=== PATIENT | female | born 1965 | race Caucasian/White ===

== ENCOUNTER 2018-07-31 15:11 | Emergency (ER) | payer MEDICARE, MEDICAID ==
[~2018-07-31] VITALS: Ht 172.7 cm; Wt 103.7 kg
[2018-07-31 15:22] VITALS: BP 120/86
== END 2018-07-31 15:51 | disposition home or self-care (01) ==
LOC: ED 15:30
DX: M54.16 Radiculopathy, lumbar region (principal); K21.9 Gastro-esophageal reflux disease without esophagitis; M19.90 Unspecified osteoarthritis, unspecified site; M54.9 Dorsalgia, unspecified; G89.29 Other chronic pain; F32.9 Major depressive disorder, single episode, unspecified
CPT/HCPCS: 99283

== ENCOUNTER → 2018-08-06 | Outpatient (CLI) | payer MEDICARE, MEDICAID | END | disposition home or self-care (01) | LOC: CFH 13:29 | PROVIDERS: ATTEND Family Medicine | DX: M51.37 Other intervertebral disc degeneration, lumbosacral region (principal); M53.3 Sacrococcygeal disorders, not elsewhere classified | CPT/HCPCS: 72100 ==

== ENCOUNTER 2018-12-08 11:38 | Emergency (ER) | payer MEDICARE, MEDICAID ==
[~2018-12-08] VITALS: Ht 170.2 cm; Wt 98.6 kg
[2018-12-08 11:51] VITALS: BP 135/91
[2018-12-08 12:19] LABS: BASOPHILS # (AUTO) 0.03 x10^3/uL (0-0.1); BASOPHILS % (AUTO) 1 % (0-1); EOSINOPHILS # (AUTO) 0.04 x10^3/uL (0-0.4); EOSINOPHILS % (AUTO) 1 % (1-7); LYMPHOCYTES # (AUTO) 1.74 x10^3/uL (1-3.4); LYMPHOCYTES % (AUTO) 28 % (22-44); MD NO; MEAN CORPUSCULAR HEMOGLOBIN 31.8 pg (27.0-34.8); MEAN CORPUSCULAR HGB CONC 33.7 g/dL (32.4-35.8); MEAN CORPUSCULAR VOLUME 94.4 fL (80-100); MEAN PLATELET VOLUME 10.4 fL (7.4-10.4); MONOCYTES # (AUTO) 0.43 x10^3/uL (0.2-0.8); MONOCYTES % (AUTO) 7 % (2-9); NEUTROPHILS # (AUTO) 3.89 x10^3/uL (1.8-6.8); NEUTROPHILS % (AUTO) 64 % (42-75); PLATELET COUNT 174 x10^3/uL (130-400); RED BLOOD COUNT 4.69 x10^6/uL (3.82-5.3)
[2018-12-08 12:26] LABS: ALBUMIN 4.3 g/dL (3.4-5.0); ANION GAP 7 mmol/L (5-15); CALCIUM 9.2 mg/dL (8.5-10.1); CHLORIDE 109 mmol/L (98-107); CREATININE 1.08 mg/dL (0.55-1.02)
[2018-12-08] MEDS ORDERED: SIMV20TA3 PO (13:03)
[2018-12-08] MEDS ORDERED: AMIT100T PO (13:03)
[2018-12-08] MEDS ORDERED: CELE400C PO (13:03)
[2018-12-08] MEDS ORDERED: LISI-170 PO (13:03)
--- NOTE | 2018-12-08 13:08 | NUR ---
Patient/Caregiver given discharge instructions and they have confirmed that they understand the instructions. Patient ambulatory with steady gait.
== END 2018-12-08 13:09 | disposition home or self-care (01) ==
LOC: ED 12:51
DX: S39.012A Strain of muscle, fascia and tendon of lower back, initial encounter (principal); K21.9 Gastro-esophageal reflux disease without esophagitis; I10 Essential (primary) hypertension; M19.90 Unspecified osteoarthritis, unspecified site; F32.9 Major depressive disorder, single episode, unspecified; W19.XXXA Unspecified fall, initial encounter; Y93.89 Activity, other specified; Y92.009 Unspecified place in unspecified non-institutional (private) residence as the place of occurrence of the external cause; Y99.8 Other external cause status
CPT/HCPCS: 36415; 72110; 80048; 82040; 85025; 93005; 99284

== ENCOUNTER 2019-11-21 14:12 | Outpatient (CLI) | payer MEDICARE, MEDICAID ==
[~2019-11-21 14:12] MED LIST: AMIT100T PO; CELE400C PO; LISI-170 PO; SIMV20TA19 PO
== END 2019-11-21 23:59 | disposition home or self-care (01) ==
LOC: CFH 14:12
PROVIDERS: ATTEND Family Medicine
DX: Z12.31 Encounter for screening mammogram for malignant neoplasm of breast (principal); N64.89 Other specified disorders of breast
CPT/HCPCS: 77067

== ENCOUNTER 2020-01-26 14:14 | Emergency (ER) | payer MEDICARE, MEDICAID ==
[~2020-01-26] VITALS: Ht 172.7 cm; Wt 95.5 kg
--- NOTE | 2020-01-26 14:42 | NUR ---
PT TO ROOM 31 PER JAM. PT WAS TRYING TO GET ON THE BUS TO GO TO [place] BUT WAS UNABLE TO STAND DUE TO LEVEL OF ETOH. PT MOVED TO CART AND 1 JACKET AND 2 SHIRTS REMOVED. RN LEFT JESENIA IN PLACE IT HAS NO METAL. PT WAS CONCERNED ABOUT HER PURSE WHICH WAS HANGING AROUND HER NECK. PURSE AND ALL CONTENTS INCLUDING CRACKED SCREENED PHONE ARE ON COUNTER NEAR PATIENT. PT UNABLE TO CONVERSE WITH STAFF, WOULD GO OFF ON DIFFERENT STORIES.
--- NOTE | 2020-01-26 14:45 | NUR ---
RN AT BEDSIDE PERFORMING ASSESSMENT, AND PATIENT HAS FALLEN ASLEEP AND SNORING. OXYGEN LEVEL DROPPED LOW 70%, RN PLACED PATIENT ON 2L NC, WHICH IMMEDIATELY BROUGHT HER SATS UP GREATER THAN 90%. PT ROOM IN VIEW FOR ALL NURSES TO KEEP MONITOR ON. PT PLACED ON THE RESP UNIT SHE TOLD [facility] SHE SMOKES AND HAS A COUGH. PT HAS MASK IN PLACE, BUT NO COUGH NOTED. WILL CONTINUE TO MONITOR.
--- NOTE | 2020-01-26 14:58 | NUR ---
SPOKE WITH PA REGARDING PATIENTS BLOOD PRESSURE UNDER 90 SYSTOLIC. ORDERS FOR BOLUS. IV STARTED X1 ATTEMPT AND 1000ML NACL BOLUS STARTED. VITALS Q15 MIN TO MONITOR. PT AGAIN PASSED OUT.
[2020-01-26] MEDS ORDERED: SODIUM CHLORIDE 0.9% 1,000ML IVBOLUS ONE (15:00)
[2020-01-26 15:03] LABS: BASOPHILS # (AUTO) 0.02 x10^3/uL (0-0.1); BASOPHILS % (AUTO) 0 % (0-1); EOSINOPHILS # (AUTO) 0.11 x10^3/uL (0-0.4); EOSINOPHILS % (AUTO) 2 % (1-7); LYMPHOCYTES # (AUTO) 2.24 x10^3/uL (1-3.4); LYMPHOCYTES % (AUTO) 36 % (22-44); MD NO; MEAN CORPUSCULAR HEMOGLOBIN 31.4 pg (27.0-34.8); MEAN CORPUSCULAR HGB CONC 33.9 g/dL (32.4-35.8); MEAN CORPUSCULAR VOLUME 92.5 fL (80-100); MEAN PLATELET VOLUME 9.7 fL (7.4-10.4); MONOCYTES # (AUTO) 0.43 x10^3/uL (0.2-0.8); MONOCYTES % (AUTO) 7 % (2-9); NEUTROPHILS # (AUTO) 3.38 x10^3/uL (1.8-6.8); NEUTROPHILS % (AUTO) 55 % (42-75); PLATELET COUNT 167 x10^3/uL (130-400); RED BLOOD COUNT 4.02 x10^6/uL (3.82-5.3); RED CELL DISTRIBUTION WIDTH 13.2 % (9.6-15.2)
[2020-01-26 15:07] LABS: ALBUMIN 3.7 g/dL (3.4-5.0); ANION GAP 9 mmol/L (5-15); CALCIUM 8.9 mg/dL (8.5-10.1); CHLORIDE 110 mmol/L (98-107); CREATININE 0.98 mg/dL (0.55-1.02)
--- NOTE | 2020-01-26 15:13 | NUR ---
PT FOUND SITTING AT THE FOOT OF THE BED WITH IV PULLED OUT. JAC RN IN TO RE-INSERT THE IV AND START THE BOLUS AGAIN. J PT NOW LYING ON HER RIGHT SIDE.
--- NOTE | 2020-01-26 15:26 | NUR ---
PT BEGINING TO SOBER UP, AND SITTING UP IN BED, PULLING AT HER IV, BUT STILL UNABLE TO HOLD A CONVERSATION. WILL CONTINUE TO MONITOR PATIENT.
--- NOTE | 2020-01-26 15:44 | NUR ---
IV REMOVED AND PATIENT ATTEMPTING TO LEAVE. RN WALKED WITH PATIENT FAR THE BR, AND AFTER MUCH COAXING, GOT THE PATIENT TO COME BACK TO ROOM AND REST UNTIL SHE CAN WALK BY HERSELF WITH NO ASSISTANCE. PT AGREES, NO IV AND NO MONITORS. PT LYING IN BED. REPORT TO RELIEF RN.
[2020-01-26 16:49] VITALS: BP 112/68
--- NOTE | 2020-01-26 16:49 | NUR ---
PT UP TO BR WITH MINIMAL ASSIST, BUT STILL REMAINS TO UNSTABLE TO DISCHARGE. PT REMAINS UNHOOKED FROM ALL EQUIPMENT, BUT DOES ALL RN TO TAKE HER BP.
--- NOTE | 2020-01-26 18:36 | NUR ---
PT DEMONSTRATES STEADY GAIT, PT AMBULATED TO EXIT. PT WITH ALL BELONGINGS ON DC
--- NOTE | 2020-01-26 18:38 | NUR ---
PT GOT UP AND BEGAN ASKING QUESTIONS ABOUT WHAT HAPPENED LAST NIGHT. PT HAD A STEADY GAIT AND WAS ESCORTED OUT BY LAURA RAMSEY.
== END 2020-01-26 18:44 | disposition home or self-care (01) ==
LOC: ED 18:40
DX: F10.120 Alcohol abuse with intoxication, uncomplicated (principal); J18.0 Bronchopneumonia, unspecified organism; Y90.9 Presence of alcohol in blood, level not specified
CPT/HCPCS: 36415; 71045; 80048; 80307; 82040; 85025; 99285; J7030